=== PATIENT | male | born 1960 | race African-American/Black ===

== ENCOUNTER 2017-06-27 21:20 | Emergency (ER) | payer MEDICAID, OTHER ==
[~2017-06-27] VITALS: Ht 177.8 cm; Wt 109.0 kg
[~2017-06-27 21:20] MED LIST: UNK HTN MEDS
[2017-06-27] MEDS ORDERED: ONDANSETRON HCL 4MG/2ML VIAL IV STA (21:54)
[2017-06-27] MEDS ORDERED: CLONIDINE 0.2MG TABLET PO ONE (22:00)
[2017-06-27 22:26] LABS: BASOPHILS % 0.6 % (0.0-2.0); EOSINOPHILS % 4.4 % (0.0-5.0); HEMATOCRIT. 46.6 % (42.0-52.0); HEMOGLOBIN. 15.8 g/dL (14.0-18.0); LYMPHOCYTES % 24.9 % (20.0-50.0); MEAN CORPUSCULAR VOLUME 94.4 fL (80.0-94.0); MEAN PLATELET VOLUME 8.4 fl (7.4-10.4); MONOCYTES % 6.3 % (2.0-8.0); NEUTROPHILS % 63.8 % (40.0-76.0); PLATELET 229 x1000/uL (130-400); RED BLOOD CELL COUNT 4.94 mill/uL (4.7-6.1); RED CELL DISTRIBUTION WIDTH 13.8 % (11.6-14.6)
[2017-06-27 22:31] LABS: CHLORIDE 102 mEq/L (98-107)
[2017-06-27 22:37] LABS: ETHANOL BLOOD < 10 mg/dL
[2017-06-27 22:44] LABS: CLARITY URINE CLEAR (CLEAR); COLOR URINE YELLOW (YELLOW); KETONES URINE NEGATIVE (NEGATIVE); LEUKOCYTE ESTERASE URINE NEGATIVE (NEGATIVE); NITRITE URINE NEGATIVE (NEGATIVE); OCCULT BLOOD URINE NEGATIVE (NEGATIVE); PH URINE 5.5 (4.5-8.0); PROTEIN URINE NEGATIVE (NEGATIVE); SPECIFIC GRAVITY URINE 1.007 (1.005-1.030); UROBILINOGEN URINE 0.2 E.U./dL (0.2-1.0)
[2017-06-27] MEDS ORDERED: HYDRALAZINE 20MG/ML VIAL IV ONE (22:45)
[2017-06-27 22:52] LABS: *AMPHETAMINES SCREEN URINE NEGATIVE (NEGATIVE)
[2017-06-27 22:54] LABS: *BARBITURATES SCREEN URINE NEGATIVE (NEGATIVE); *BENZODIAZEPINES SCREEN URINE NEGATIVE (NEGATIVE); *COCAINE SCREEN URINE NEGATIVE (NEGATIVE); CANNABINOID URINE SCREEN NEGATIVE (NEGATIVE); METHADONE URINE SCREEN NEGATIVE (NEGATIVE); OPIATES URINE SCREEN NEGATIVE (NEGATIVE); PHENCYCLIDINE URINE SCREEN NEGATIVE (NEGATIVE)
[2017-06-28] MEDS ORDERED: ACETAMINOPHEN 325MG TABLET PO ONE (01:30)
[2017-06-28] MEDS ORDERED: AMLODIPINE 10MG TABLET PO ONE (02:00)
[2017-06-28 02:52] VITALS: BP 168/94
== END 2017-06-28 02:56 | disposition home or self-care (01) ==
LOC: ER 22:29
DX: I10 Essential (primary) hypertension (principal); R51 Headache
CPT/HCPCS: 36415; 70450; 71045; 80053; 80305; 81003; 84484; 85025; 93005; 96374; 99285; G0482; J0360; J2405; Z7610

== ENCOUNTER 2019-02-23 23:38 | Emergency (ER) | payer MEDICAID ==
[~2019-02-23] VITALS: Ht 180.3 cm; Wt 105.0 kg
[2019-02-24] MEDS ORDERED: MORPHINE SULFATE 4 MG/ML CPJ (NOT FOR IM USE) IV STA (00:45)
[2019-02-24] MEDS ORDERED: HYDRALAZINE 20MG/ML VIAL IV ONE (00:45)
[2019-02-24 01:00] LABS: BASOPHILS % 0.9 % (0.0-2.0); EOSINOPHILS % 5.2 % (0.0-5.0); HEMATOCRIT. 47.2 % (42.0-52.0); HEMOGLOBIN. 15.9 g/dL (14.0-18.0); LYMPHOCYTES % 31.8 % (20.0-50.0); MEAN CORPUSCULAR HEMOGLOBIN 32.2 pg (28.0-32.0); MEAN CORPUSCULAR VOLUME 95.7 fL (80.0-94.0); MEAN PLATELET VOLUME 9.1 fl (7.4-10.4); MONOCYTES % 8.8 % (2.0-8.0); NEUTROPHILS % 53.3 % (40.0-76.0); PLATELET 208 x1000/uL (130-400); RED BLOOD CELL COUNT 4.93 mill/uL (4.7-6.1); RED CELL DISTRIBUTION WIDTH 12.7 % (11.6-14.6)
[2019-02-24 01:12] LABS: CHLORIDE 107 mEq/L (98-107)
[2019-02-24 03:45] VITALS: BP 156/96
== END 2019-02-24 04:31 | disposition home or self-care (01) ==
LOC: ER 23:38
DX: I10 Essential (primary) hypertension (principal); R51 Headache
CPT/HCPCS: 36415; 70450; 71045; 80053; 85025; 93005; 96374; 96375; 99284; J0360; J2270; Z7610

== ENCOUNTER 2019-02-24 22:18 | Emergency (ER) | payer MEDICAID ==
[~2019-02-24] VITALS: Ht 180.3 cm; Wt 104.0 kg
[2019-02-25] MEDS ORDERED: MORPHINE SULFATE 4 MG/ML CPJ (NOT FOR IM USE) IV STA (00:06)
[2019-02-25] MEDS ORDERED: ONDANSETRON HCL 4MG/2ML INJ IV STA (00:06)
[2019-02-25] MEDS ORDERED: CLONIDINE 0.2MG TABLET PO ONE (00:15)
[2019-02-25 00:30] LABS: EOSINOPHILS % 5.4 % (0.0-5.0); HEMATOCRIT. 50.9 % (42.0-52.0); HEMOGLOBIN. 17.1 g/dL (14.0-18.0); LYMPHOCYTES % 34.6 % (20.0-50.0); MEAN CORPUSCULAR HEMOGLOBIN 32.4 pg (28.0-32.0); MEAN CORPUSCULAR VOLUME 96.5 fL (80.0-94.0); MEAN PLATELET VOLUME 9.4 fl (7.4-10.4); MONOCYTES % 7.8 % (2.0-8.0); NEUTROPHILS % 51.2 % (40.0-76.0); PLATELET 242 x1000/uL (130-400); RED BLOOD CELL COUNT 5.27 mill/uL (4.7-6.1)
[2019-02-25 00:37] LABS: CHLORIDE 107 mEq/L (98-107)
[2019-02-25 00:40] LABS: PARTIAL THROMBOPLASTIN TIME 25.9 sec (23.4-31.0); PROTHROMBIN TIME 9.9 sec (9.6-11.0)
[2019-02-25] MEDS ORDERED: SPIRONOLACTONE 25MG TABLET PO ONE (01:45)
[2019-02-25 02:08] VITALS: BP 156/89
== END 2019-02-25 02:31 | disposition home or self-care (01) ==
LOC: ER 22:18
DX: I10 Essential (primary) hypertension (principal); R51 Headache; E78.00 Pure hypercholesterolemia, unspecified
CPT/HCPCS: 36415; 70450; 80053; 83880; 84443; 84484; 85025; 85610; 85730; 93005; 96374; 96375; 99284; J2270; J2405

== ENCOUNTER 2020-03-28 03:25 | Emergency (ER) | payer OTHER ==
[~2020-03-28] VITALS: Ht 175.3 cm; Wt 90.0 kg
[2020-03-28] MEDS ORDERED: LABETALOL HCL 20MG/4ML CARPUJECT IV ONE (04:15)
[2020-03-28] MEDS ORDERED: KETOROLAC 15MG/ML VIAL IV ONE (04:15)
[2020-03-28 05:29] LABS: CHLORIDE 107 mEq/L (98-107)
[2020-03-28 05:49] VITALS: BP 161/101
== END 2020-03-28 05:51 | disposition home or self-care (01) ==
LOC: ER 03:25
DX: I10 Essential (primary) hypertension (principal); Z91.14 Patient's other noncompliance with medication regimen; Z88.0 Allergy status to penicillin
CPT/HCPCS: 36415; 80053; 93005; 96374; 96375; 99284; J1885; J3490

== ENCOUNTER 2023-01-05 09:46 | Emergency (ER) | payer OTHER ==
[~2023-01-05] VITALS: Ht 180.3 cm; Wt 108.9 kg
[2023-01-05 09:54] VITALS: BP 178/88; PULSE 68; RESP 16; TEMP 98.3; O2SAT 99
[2023-01-05 11:19] LABS: BASOPHILS % 0.9 % (0.0-2.0); EOSINOPHILS % 11.2 % (0.0-5.0); HEMATOCRIT. 49.2 % (42.0-52.0); HEMOGLOBIN. 16.4 g/dL (14.0-18.0); LYMPHOCYTES % 29.1 % (20.0-50.0); MEAN CORPUSCULAR HEMOGLOBIN 32.7 pg (28.0-32.0); MEAN CORPUSCULAR HGB CONC 33.4 g/dL (31.0-37.0); MEAN CORPUSCULAR VOLUME 97.9 fL (80.0-94.0); MEAN PLATELET VOLUME 8.9 fl (7.4-10.4); MONOCYTES % 8.4 % (2.0-8.0); NEUTROPHILS % 50.4 % (40.0-76.0); PLATELET 259 x1000/uL (130-400); RED BLOOD CELL COUNT 5.02 mill/uL (4.7-6.1); RED CELL DISTRIBUTION WIDTH 12.9 % (11.6-14.6); WHITE BLOOD COUNT 5.5 x1000/uL (4.5-11.0)
[2023-01-05 12:36] LABS: CHLORIDE 105 mEq/L (98-107); GLUCOSE 92 mg/dL (70-105); POTASSIUM 4.5 mEq/L (3.5-5.1); SODIUM 138 mEq/L (136-145)
[2023-01-05 12:37] LABS: ALANINE AMINOTRANSFERASE 27 IU/L (10-49); ALBUMIN 4.5 g/dL (3.2-4.8); ASPARTATE AMINOTRANSFERASE 29 IU/L (<34); BILIRUBIN TOTAL 1.1 mg/dL (0.1-1.0); CALCIUM 9.6 mg/dL (8.7-10.4); CREATININE 1.3 mg/dL (0.6-1.3); PROTEIN TOTAL 7.2 g/dL (6.0-8.3); UREA NITROGEN BLOOD 14 mg/dL (9-23)
[2023-01-05 12:39] LABS: TROPONIN I HIGH SENSITIVITY 15 ng/L (3.0-53)
[2023-01-05] MEDS ORDERED: ACETAMINOPHEN 325MG TABLET PO ONE (12:45)
[2023-01-05 12:47] LABS: CARBON DIOXIDE 23 mEq/L (21-32)
== END 2023-01-05 13:11 | disposition home or self-care (01) ==
LOC: ER 09:46
DX: I10 Essential (primary) hypertension (principal); Z88.0 Allergy status to penicillin
CPT/HCPCS: 36415; 71045; 80053; 84484; 85025; 93005; 99285

== ENCOUNTER 2024-03-13 15:36 | Emergency (ER) | payer MEDICAID ==
[~2024-03-13] VITALS: Ht 180.3 cm; Wt 102.0 kg
[~2024-03-13 15:36] MED LIST changes: +AMLO10TA4 MT; +CLON0.1T MT; +FAMO-135 MT; +METH4TAB95 MT; -UNK HTN MEDS
[2024-03-13 15:51] VITALS: O2SAT 97
[2024-03-13] MEDS: KETOROLAC 30MG/ML VIAL IM ONE (20:30)
[2024-03-13] MEDS ORDERED: AMLODIPINE 10MG TABLET PO ONE (20:30)
[2024-03-13] MEDS: AMLODIPINE 5MG TABLET PO NR (21:15)
[2024-03-13] MEDS ORDERED: IBUP-2028 MT (23:08)
[2024-03-13 23:10] VITALS: BP 180/99; PULSE 81; RESP 16; TEMP 36.8; O2SAT 99
== END 2024-03-13 23:20 | disposition home or self-care (01) ==
LOC: ER 15:36
DX: R51.9 Headache, unspecified (principal); I10 Essential (primary) hypertension; Z79.899 Other long term (current) drug therapy; Z88.0 Allergy status to penicillin
CPT/HCPCS: 99285; 70450; 96372; J1885

== ENCOUNTER 2024-06-28 08:31 | Inpatient (IN) | payer MEDICAID ==
[~2024-06-28] VITALS: Ht 180.3 cm; Wt 99.8 kg
[~2024-06-28 08:31] MED LIST changes: +AMLO-905 MT; -AMLO10TA4 MT; +IBUP-2028 MT
[2024-06-28 09:28] LABS: BASOPHILS % 0.6 % (0.0-2.0); EOSINOPHILS % 1.6 % (0.0-5.0); HEMATOCRIT. 46.5 % (42.0-52.0); HEMOGLOBIN. 15.7 g/dL (14.0-18.0); LYMPHOCYTES % 15.4 % (20.0-50.0); MEAN CORPUSCULAR HEMOGLOBIN 32.7 pg (28.0-32.0); MEAN CORPUSCULAR HGB CONC 33.7 g/dL (31.0-37.0); MEAN PLATELET VOLUME 8.5 fl (7.4-10.4); MONOCYTES % 4.1 % (2.0-8.0); NEUTROPHILS % 78.3 % (40.0-76.0); PLATELET 214 x1000/uL (130-400); RED CELL DISTRIBUTION WIDTH 13.4 % (11.6-14.6); WHITE BLOOD COUNT 7.6 x1000/uL (4.5-11.0)
[2024-06-28] MEDS: SODIUM CHLORIDE 0.9% 1,000 ML IV ONE (09:41)
[2024-06-28] MEDS: MECLIZINE 25MG TABLET PO ONE (09:41)
[2024-06-28] MEDS: ONDANSETRON HCL 4MG/2ML INJ IV ONE (09:41)
[2024-06-28] MEDS: HYDRALAZINE 20MG/ML VIAL IV ONE (10:33)
[2024-06-28 11:10] LABS: CHLORIDE 106 mEq/L (98-107); POTASSIUM 3.6 mEq/L (3.5-5.1); SODIUM 141 mEq/L (136-145)
[2024-06-28 11:11] LABS: CARBON DIOXIDE 21 mEq/L (21-32)
[2024-06-28 11:12] LABS: CALCIUM 9.4 mg/dL (8.7-10.4)
[2024-06-28 11:16] LABS: CREATININE 1.1 mg/dL (0.6-1.3); GLUCOSE 144 mg/dL (70-105); UREA NITROGEN BLOOD 10 mg/dL (9-23)
[2024-06-28 11:17] LABS: TROPONIN I HIGH SENSITIVITY 11 ng/L (3.0-53)
[2024-06-28 15:00] VITALS: BP 202/114; PULSE 80; RESP 21; TEMP 36.6
[2024-06-28 16:00] VITALS: BP 201/117; PULSE 75; RESP 14; TEMP 36.7; O2SAT 100
[2024-06-28] MEDS: CLONIDINE 0.2MG TABLET PO NR (16:23)
[2024-06-28] MEDS: ENOXAPARIN 40MG/0.4ML SYR SUBCUT SCH (16:25)
[2024-06-28] MEDS: HYDRALAZINE 20MG/ML VIAL IV PRN (18:03)
[2024-06-28 19:34] VITALS: BP 155/97; PULSE 80; RESP 16; TEMP 36.2; O2SAT 97
[2024-06-28 19:46] LABS: CLARITY URINE CLEAR (CLEAR); GLUCOSE URINE NEGATIVE (NEGATIVE); KETONES URINE NEGATIVE (NEGATIVE); LEUKOCYTE ESTERASE URINE NEGATIVE (NEGATIVE); NITRITE URINE NEGATIVE (NEGATIVE); OCCULT BLOOD URINE NEGATIVE (NEGATIVE); PH URINE >=9.0 (4.5-8.0); PROTEIN URINE TRACE (NEGATIVE); SPECIFIC GRAVITY URINE 1.015 (1.005-1.030)
[2024-06-28 20:05] LABS: *AMPHETAMINES SCREEN URINE NEGATIVE (NEGATIVE); *BENZODIAZEPINES SCREEN URINE NEGATIVE (NEGATIVE)
[2024-06-28 20:06] LABS: *BARBITURATES SCREEN URINE NEGATIVE (NEGATIVE); *COCAINE SCREEN URINE NEGATIVE (NEGATIVE); CANNABINOID URINE SCREEN NEGATIVE (NEGATIVE); COLOR URINE STRAW (YELLOW); ECSTASY MDMA SCREEN URINE NEGATIVE (NEGATIVE); METHADONE URINE SCREEN NEGATIVE (NEGATIVE); OPIATES URINE SCREEN NEGATIVE (NEGATIVE); PHENCYCLIDINE URINE SCREEN NEGATIVE (NEGATIVE)
[2024-06-28 20:07] LABS: BACTERIA URINE NONE SEEN; RBC URINE NONE SEEN /hpf (0-2); SQUAMOUS EPITHELIAL CELL URINE RARE /lpf (RARE/1+); WBC URINE NONE SEEN /hpf (0-2)
[2024-06-28] MEDS: FAMOTIDINE 20MG TABLET PO SCH (22:13)
[2024-06-29] VITALS: BP 143/89; PULSE 70; RESP 17; TEMP 37.1; O2SAT 99
[2024-06-29 04:00] VITALS: BP 154/95; PULSE 69; RESP 12; TEMP 36.8; O2SAT 98
[2024-06-29] MEDS ORDERED: HYDROCODONE/ACETAMINOPHEN 5/325MG TABLET PO PRN (05:30)
[2024-06-29] MEDS ORDERED: NALOXONE HCL 0.4MG/ML VIAL IV PRN (05:30)
[2024-06-29] MEDS: ACETAMINOPHEN 325MG TABLET PO PRN (05:38)
[2024-06-29 08:00] VITALS: BP 153/93; PULSE 75; RESP 18; TEMP 36.9; O2SAT 95
[2024-06-29] MEDS: CLONIDINE 0.1MG TABLET PO SCH (08:14)
[2024-06-29] MEDS: AMLODIPINE 10MG TABLET PO SCH (08:14)
[2024-06-29] MEDS: LOSARTAN 50 MG TABLET PO SCH (08:14)
[2024-06-29] MEDS ORDERED: LOSA50TA41 PO (10:58)
[2024-06-29 11:13] VITALS: BP 139/89; PULSE 75; TEMP 98.5; O2SAT 98
[2024-06-29 11:36] LABS: HEPATITIS B SURFACE ANTIGEN NEGATIVE (Negative)
[2024-06-29 11:57] LABS: HEPATITIS C AB NON REACTIVE (Neg) (Negative)
[2024-06-29 12:00] VITALS: PULSE 62; RESP 13
== END 2024-06-29 13:05 | disposition home or self-care (01) | DRG 199 ==
LOC: ER 08:31 → EDBEDREQ 12:14 → EDBEDREQTM 12:14 → 3WST 13:35
PROVIDERS: ADMIT Internal Medicine; ATTEND Internal Medicine
DX: I16.0 Hypertensive urgency (principal); I50.9 Heart failure, unspecified; D62 Acute posthemorrhagic anemia; F17.210 Nicotine dependence, cigarettes, uncomplicated; I11.0 Hypertensive heart disease with heart failure; Z91.199 Patient's noncompliance with other medical treatment and regimen due to unspecified reason; Z88.0 Allergy status to penicillin; K62.5 Hemorrhage of anus and rectum; K64.9 Unspecified hemorrhoids
CPT/HCPCS: 36415; 71045; 80048; 80305; 81003; 83880; 84484; 85025; 86705; 87340; 93005; 96361; 96374; 96375; 99285; J0360; J1650; J2405; J7030; J8597